=== PATIENT | female | born 1935 | race Caucasian/White ===

== ENCOUNTER 2016-06-13 19:43 | Emergency (ER) | payer MEDICAID, MEDICARE ==
[~2016-06-13 19:43] MED LIST: Sodium Chloride 0.9% 1,000 ML BAG ONE; Sodium Chloride 0.9% 100 ML BAG ONE
[2016-06-13 20:45] LABS: #Basophils 0.1 thou/uL (0.0-0.2); #Eosinphils 0.1 thou/uL (0.0-0.7); #Lymphocytes 0.4 thou/uL (1.20-3.40); #Monocytes 0.5 thou/uL (0.11-0.59); #Neutrophils 10.8 thou/uL (1.40-6.50); %Basophils 1.1 % (0.0-1.0); %Eosinophils 0.4 % (0.0-10.0); %Lymphocytes 3.4 % (21.0-51.0); %Monocytes 4.1 % (0.0-10.0); ALT (SGPT) 9 U/L (0-55); AST (SGOT) 14 U/L (5-34); Albumin 3.5 g/dL (3.4-4.8); Alkaline Phosphatase 50 U/L (40-150); Anion Gap 17 mmol/L (10-20); BUN (Urea Nitrogen) 20 mg/dL (9.8-20.1); Bilirubin, Total 0.8 mg/dL (0.2-1.2); Calc. Creatinine Clearance 0 mL/min (70-130); Calcium 8.7 mg/dL (7.8-10.44); Carbon Dioxide 18 mmol/L (23-31); Chloride 98 mmol/L (98-107); Estimated GFR-MDRD 39; Globulin 2.9 g/dL (2.4-3.5); Glucose 120 mg/dL (83-110); Hemoglobin 10.8 g/dL (12.0-16.0); Lipase 11 U/L (8-78); Mean Corpuscular HGB CONC 34.1 g/dL (32.0-36.0); Mean Corpuscular Hemoglobin 30.7 pg (27.0-31.0); Mean Corpuscular Volume 90.1 fl (81.0-99.0); Mean Platelet Volume 7.1 fL (7.4-10.4); Platelet Count 313 thou/uL (130-400); Potassium 4.6 mmol/L (3.5-5.1); Protein, Total 6.4 g/dL (5.8-8.1); RBC Distribution Width 13.5 % (11.5-14.5); Red Blood Cell (RBC) Count 3.52 mill/uL (4.20-5.40); Sodium 128 mmol/L (136-145); White Blood Cell (WBC) Count 11.8 thou/uL (4.8-10.8)
[2016-06-13 20:52] LABS: CKMB 0.5 ng/mL (0-6.6); Troponin I Less than 0.010 ng/mL (< 0.028)
--- NOTE | 2016-06-13 21:19 | RAD ---
ACUTE ABDOMINAL SERIES 06/13/16 HISTORY: Abdominal pain. CHEST X-RAY: Compared to study on 09/11/15. The cardiac silhouette is magnified by projection but stable in size. Mild chronic lung changes are again seen. The lungs are otherwise clear. Vascular calcifications are seen in the thoracic aorta. N o other interval change. TWO VIEWS OF THE ABDOMEN: There is a nonspecific bowel gas pattern. Vascular calcifications are seen in the abdominal aorta an d iliac arteries. No definite suspicious calcifications are seen. There are degenerative changes in the spine. 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 IMPRESSION: 1. Nonspecific bowel gas pattern. 2. Mild chronic lung changes. POS: [facility]
[2016-06-13 21:39] LABS: Bilirubin Small (Negative); Blood, Urine Large (Negative); Clarity Cloudy (Clear); Glucose, Urine (Dipstick) Negative (Negative); Leukocyte Negative (Negative); Nitrite Negative (Negative); Protein, Urine (Dipstick) 30 mg/dL (Neg-Trace); Urobilinogen 0.2 mg/dL (0.2-1.0); pH, Urine 5.5 (5.0-9.0)
[2016-06-13 21:40] LABS: Bacteria/HPF 4+ HPF (None Seen); Hyaline Casts/LPF 4-6 HYALINE CAST LPF (0-3 Hyaline); Icto Negative (Negative); RBC/HPF 21-50 HPF (0-3); Renal Epithelial 0-3 HPF (0-3); Squamous Epithelial 0-3 HPF (0-3); Transitional Epithelial 0-3 HPF (0-3); WBC/HPF 21-50 HPF (0-3); Yeast-All Forms Rare HPF (None Seen)
[2016-06-13] MEDS ORDERED: cefTRIAXone\\ROCEPHIN 1 GM VIAL ONE (21:47)
[2016-06-13] MEDS ORDERED: Ondansetron ODT 4 MG TAB ONE (21:54)
--- NOTE | 2016-06-13 23:02 | ERRECORD ---
[facility] EMERGENCY RECORD HPI ABDOMINAL PAIN (20:32 BGOE) CHIEF COMPLAINTS: Patient presents for evaluation of abdominal pain. HISTORIAN: History provided by patient, patient notes lower abdominal pain over past 24 hrs. started yesterday evening. intermittent since. noted fever today of 100.6. no v/d. severino po. no sob/cp. no recent travels or exposures. LOCATION FEMALE: Symptoms are localized, most severe in the suprapubic region. QUALITY: Pain is dull in nature, described as aching. SEVERITY: Maximum severity of symptoms moderate, Currently symptoms are mild. TIME COURSE: Gradual onset of symptoms, Symptoms are intermittent. ASSOCIATED WITH FEMALE: No associated recent antibiotic use, No associated bright red blood per rectum, Associated with chills, No associated constipation, No associated diarrhea, Associated with fever, No associated flank pain, No associated groin pain, No associated hematemesis, No associated hematuria, No associated loss of appetite, No associated melena, No associated nausea, No associated night sweats, No associated trauma, No associated recent travel, No associated inability to tolerate oral intake, No associated urinary tract infection signs or symptoms, No associated vomiting, No associated vaginal discharge, No associated vaginal bleeding, No associated weight change. RELIEVED BY: Patient's condition relieved by time. EXACERBATED BY: Patient's condition exacerbated by nothing. ROS (20:34 BGOE) CARDIOVASCULAR: Historian reports chest pain, notes intermittent anginal pains. none currently. MUSCULOSKELETAL: Historian reports arthralgias, generalized, clementine to neck and back. NEUROLOGIC: Negative neurologic review of systems. NOTES: All systems reviewed, negative except as described above. PAST MEDICAL HISTORY MEDICAL HISTORY: Past medical history includes cardiac history, angina, Flu vaccine up to date, Date of immunization: 2014, Pneumococcal vaccine up to date, Date of immunization: 2014, Notes: VERIFIED 09-11-15, Notes: VERIFIED 02-24-14, Flu vaccine up to date, Date of immunization: 2011, Tetanus immunization up to date, Pneumococcal vaccine up to date, Date of immunization: LESS THAN 5 YRS. (19:55 MHEB) FEMALE SURGICAL HISTORY: Surgical history of hysterectomy, VERIFIED 09-11-15, VERIFIED 02-24-14, Surgical history of orthopedic surgery, CONSTANTINE HIP, Date of surgery 2008. VERIFIED 06/13/16. (19:55 MHEB) PSYCHIATRIC HISTORY: No previous psychiatric history, Notes: DENIES. (19:55 MHEB) SOCIAL HISTORY: Patient denies alcohol use, Patient denies drug &a-1R&a+25V*p+0X*p1626C*c202B*c15G*c2P*p-0X&a-25V&a+1R Name: Rosa Tellez : 1935 F80 MedRec: [id number] AcctNum: [id number] Prepared: Sat Jun 13, 2016 23:00 by Interface Page 1 of 4 pMD [facility] EMERGENCY RECORD use, Patient currently uses tobacco, Patient smokes 1 pack per day, Patient denies alcohol use, Patient denies drug use, Patient currently uses tobacco, smokes cigarettes, daily, Patient smokes 1 pack per day, Lives at home, alone, Social History includes VERIFIED 09-11-15, Social History includes VERIFIED 02-24-14, Patient currently uses tobacco, Patient smokes cigarettes, Patient smokes 1 pack per day, Patient denies alcohol use, Patient denies drug use, Lives at home, with family. (19:55 MHEB) NOTES: Nursing records reviewed, Agree with nursing records, Medication list reviewed. (20:35 BGOE) KNOWN ALLERGIES alendronate sodium (Unconfirmed): Reaction: joint pains Alendronic Acid (Unconfirmed) ALLERGIES: (Unconfirmed) citalopram (Unconfirmed): Reaction: dizziness FOOD ALLERGIES: (Unconfirmed) LATEX ALLERGY? (Unconfirmed) SULF (Unconfirmed): Reaction: [id number] Sulfa (Sulfonamide Antibiotics) (Unconfirmed) Sulfa Drugs: Severity: Severe, Source: Patient sulfacetamide (Unconfirmed) tramadol (Unconfirmed): Reaction: headaches vit d3 (Unconfirmed): Reaction: bones hurt CURRENT MEDICATIONS No recorded medications VITAL SIGNS VITAL SIGNS: BP: 89/41, Pulse: 89, Resp: 18, Temp: 99.4 (Oral), Pain: 10, O2 sat: 96 on Room Air, Time: 06/13/2016 19:52. (19:52 MHEB) BP: 92/40, Pulse: 76, Resp: 15, O2 sat: 95 on Room Air, Time: 06/13/2016 20:10. (20:10 EF) BP: 110/49, Pulse: 72, Resp: 18, O2 sat: 98, Time: 06/13/2016 21:28. (21:28 MHEB) PHYSICAL EXAM (20:34 BGOE) CONSTITUTIONAL: Patient afebrile, Pulse normal, Blood pressure, hypotensive, Respiratory rate normal, Patient appears non toxic, Patient appears, in mild pain distress, Patient alert and oriented to person, place and time. HEAD: Head exam included findings of head atraumatic, normocephalic. EYES: Eye exam included findings of eyelids normal to inspection, Pupils equally round and reactive to light, Extraocular muscles intact. ENT: ENT exam normal. NECK: Neck exam included findings of normal range of motion, Trachea midline. &a-1R&a+25V*p+0X*f6414W*c202B*c15G*c2P*p-0X&a-25V&a+1R Name: Rosa Tellez : 1935 F80 MedRec: [id number] AcctNum: [id number] Prepared: Sat Jun 13, 2016 23:00 by Interface Page 2 of 4 pMD [facility] EMERGENCY RECORD RESPIRATORY CHEST: Respiratory and chest exam normal, Breath sounds clear. CARDIOVASCULAR: Cardiovascular exam included findings of heart rate regular rate and rhythm, Heart sounds normal. ABDOMEN FEMALE: Abdominal exam included findings of abdomen tender, to the suprapubic region, mild intensity, Bowel sounds normal. BACK: Back exam normal. UPPER EXTREMITY: Upper extremity exam included findings of inspection normal, Range of motion normal. LOWER EXTREMITY: Lower extremity exam included findings of inspection normal, Range of motion normal. NEURO: Neuro exam findings include patient oriented to person, place and time, Speech normal, Gait normal. SKIN: Skin exam included findings of skin warm, dry, and normal in color. LYMPHATIC: Lymphatic exam included findings of cervical nodes normal. PSYCHIATRIC: Psychiatric exam included findings of patient oriented to person place and time, Normal affect. EKG INTERPRETATION (20:35 BGOE) MONITOR STRIP: cardiac monitor strip interpreted by Emergency Department Physician, Monitor strip shows normal sinus rhythm, with no ectopics. 12 LEAD EKG INTERPRETATION: 12 lead EKG shows normal sinus rhythm, Interpretation: normal EKG, Clinical impression: Normal EKG. RADIOLOGYINTERPRETATION (21:12 BGOE) CHEST: Chest films negative, no acute changes. ABDOMEN: Obstructive series films negative, normal small bowel gas pattern. MEDICATION ADMINISTRATION SUMMARY Drug Name: Zofran ODT, Dose Ordered: 1 tab(s), Route: Oral, Status: Given, Time: 22:12 06/13/2016, Drug Name: Rocephin injection, Dose Ordered: 1 g, Route: IV Piggy Back, Status: Given, Time: 21:52 06/13/2016, Drug Name: Normal Saline, Dose Ordered: 1 L, Route: IV Fluid Infusion, Status: Given, Time: 20:11 06/13/2016, Detailed record available in Medication Service section. DOCTOR NOTES (21:47 BGOE) TEXT: labs/xray reviewed with patient. suspect possible UTI given urine findings. patient still with mild suprapubic pain but overall feeling better after IV fluid. will give Zofran/rocephin and d/c with abx and close f/u with pcp. PATIENT STATUS: Patient has improved since arrival to emergency department. &a-1R&a+25V*p+0X*o4805O*c202B*c15G*c2P*p-0X&a-25V&a+1R Name: Rosa Tellez : 1935 F80 MedRec: [id number] AcctNum: [id number] Prepared: Sat Jun 13, 2016 23:00 by Interface Page 3 of 4 pMD [facility] EMERGENCY RECORD PATIENT PLAN: The patient will be discharged, The patient will follow up with primary care physician. PROBLEM LIST No recorded problems DIAGNOSIS (21:49 BGOE) FINAL: PRIMARY: UTI SITE NOT SPECIFIED, ADDITIONAL: Abdominal Pain, ANEMIA UNSPECIFIED, DEHYDRATION. PRESCRIPTION (21:49 BGOE) Ceftin: TABLET : 500 mg : ORAL : Quantity: 1 Unit: tab(s) Route: ORAL Schedule: 2 times a day Dispense: 14 Unit: tab(s) May substitute. Refills: No Refills . NOTES: No Refills. Zofran ODT: TABLET,DISINTEGRATING : 4 mg : ORAL : Quantity: 4 Unit: mg Route: ORAL Schedule: every 8 hours PRN Dispense: 20 Unit: tab(s) May substitute. Refills: No Refills . NOTES: ^s=No Refills No Refills. DISPOSITION PATIENT: Disposition Type: Discharge, Disposition: *Discharge Home, Condition: Good. (21:49 BGOE) Patient left the department. (22:58 MHEB) Huerta: BGOE=MD Delroy, Jeff CJEF=BEVERLY Brizuela, Liliane MHEB=BEVERLY Chase, Valeria &a-1R&a+25V*p+0X*m4861P*c202B*c15G*c2P*p-0X&a-25V&a+1R Name: GeoffRosa Salomón : 1935 F80 MedRec: [id number] AcctNum: [id number] Prepared: Sree Jun 13, 2016 23:00 by Interface Page 4 of 4 pMD MTDD
--- NOTE | 2016-06-13 23:09 | PICIS ---
[facility] EMERGENCY RECORD TRIAGE (Sat Jun 13, 2016 19:53 MHEB) TRIAGE NOTES: ABDOMINAL PAIN ALL DAY. (Sat Jun 13, 2016 19:53 MHEB) PATIENT: NAME: Rosa Tellez, AGE: 80, GENDER: female, : Sun 1935, TIME OF GREET: Sat Jun 13, 2016 19:44, PREFERRED LANGUAGE: Japanese, ETHNICITY: Not or , ECODE BILLING MAP: [facility], SSN: [id number], Zip Code: [address], KG WEIGHT: 64.86, PHONE: , , , PERSON ID: [id number], PCP: MD Doe Grover. (Sat Jun 13, 2016 19:53 MHEB) COMPLAINT: FEVER AND STOMACH PAIN. (Sat Jun 13, 2016 19:53 MHEB) ADMISSION: URGENCY: 3 Urgent, ADMISSION SOURCE: Home, TRANSPORT: Walk-in, BED: TRIAGE. (Sat Jun 13, 2016 19:53 MHEB) SIRS SCORING: Heart Rate 55-109 (0), Temp range 96.8-101.1 (0), respiratory rate 12-24 (0), Mental Status altered: no (0). (19:55 MHEB) TRIAGE SCREENING: Patient denies suicidal ideation, Patient denies presence of domestic violence. (19:55 MHEB) PROVIDERS: TRIAGE NURSE: Julián Chase RN. (Sat Jun 13, 2016 19:53 MHEB) VITAL SIGNS: BP 89/41, Pulse 89, Resp 18, Temp 99.4, (Oral), Pain 10, O2 Sat 96, on Room Air, Time 06/13/2016 19:52. (19:52 MHEB) KNOWN ALLERGIES alendronate sodium (Unconfirmed): Reaction: joint pains Alendronic Acid (Unconfirmed) ALLERGIES: (Unconfirmed) citalopram (Unconfirmed): Reaction: dizziness FOOD ALLERGIES: (Unconfirmed) LATEX ALLERGY? (Unconfirmed) SULF (Unconfirmed): Reaction: [id number] Sulfa (Sulfonamide Antibiotics) (Unconfirmed) Sulfa Drugs: Severity: Severe, Source: Patient sulfacetamide (Unconfirmed) tramadol (Unconfirmed): Reaction: headaches vit d3 (Unconfirmed): Reaction: bones hurt CURRENT MEDICATIONS No recorded medications VITAL SIGNS VITAL SIGNS: BP: 89/41, Pulse: 89, Resp: 18, Temp: 99.4 (Oral), Pain: 10, O2 sat: 96 on Room Air, Time: 06/13/2016 19:52. (19:52 MHEB) BP: 92/40, Pulse: 76, Resp: 15, O2 sat: 95 on Room Air, Time: 06/13/2016 20:10. (20:10 CJEF) BP: 110/49, Pulse: 72, Resp: 18, O2 sat: 98, Time: 06/13/2016 21:28. (21:28 MHEB) NURSING ASSESSMENT: ABDOMEN (20:09 EB) CONSTITUTIONAL: Patient arrives ambulatory, Gait steady, History &a-1R&a+25V*p+0X*a2337X*c202B*c15G*c2P*p-0X&a-25V&a+1R Name: Rosa Tellez : 1935 F80 MedRec: [id number] AcctNum: [id number] Prepared: Sat Jun 13, 2016 23:06 by Interface Page 1 of 12 pMD [facility] EMERGENCY RECORD obtained from patient, Patient appears comfortable, Patient cooperative, Patient alert, Oriented to person, place and time, Skin warm, Skin dry, Skin normal in color, Mucous membranes pink, Mucous membranes moist, Patient is well-groomed, Patient complains of abdominal pain, states she woke up this am with severe abdominal pain. denies diarrhea, reports nausea but denies vomiting. ABDOMEN: Associated with nausea, no associated vomiting, no associated diarrhea. NURSING ASSESSMENT: FALL RISK (20:09 [facility]) FALL RISK: Fall risk assessment findings include: History of falls (5), No bed rest greater than 2 days (0), No use of level of consciousness altering agents with mentation or cognitive changes (0), Change in blood pressure (1), Sensory deficits (1), Impaired mobility (3), No neurologic diagnosis (0), No elimination problems (0), No confusion (0), Total score 10, Fall risk. HENDRICH II FALL RISK: Hendrich II Fall Risk assessment findings include patient not confused, disoriented or impulsive, not symptomatic or depressed, no altered elimination, no dizziness or vertigo, female, no antiepileptics (anticonvulsants) administered, no Benzodiazepines administered, Multiple attempts, but successful(3), Total score 3, Score less than 5. Patient not high risk for falls. NURSING ASSESSMENT: SKIN (20:10 [facility]) SKIN: Skin assessment findings include skin warm, Skin dry, Skin normal in color. NGOC SCALE: (3) Sensory perception slightly limited, (3) Skin is occasionally moist, (3) Patient walks occasionally, (3) Slightly limited mobility, (3) Adequate nutrition, (3) Patient has no apparent problem moving, Ngoc Risk Total: 18. NOTES: Patient tolerated procedure well. SAFETY: Side rails up, Cart/Stretcher in lowest position, Family at bedside, Call light within reach, Hospital ID band on. NURSING PROCEDURE: ZIGZAGGER (20:09 [facility]) PATIENT IDENTIFIER: Patient actively involved in identification process, Patient's identity verified by patient stating name, Patient's identity verified by patient stating date. ZIGZAGGER: Cardiac monitoring indicated for complaint of chest pain, Patient placed on cardiac cath tech, Heart rate: 78, showing normal sinus rhythm, Patient placed on non-invasive blood pressure monitor, Patient placed on continuous pulse oximetry, Adult/pediatric oxisensor applied. FOLLOW-UP: After procedure, alarms set and on, After procedure, patient tolerating monitoring. NOTES: Patient tolerated procedure well. SAFETY: Side rails up, Cart/Stretcher in lowest position, Family &a-1R&a+25V*p+0X*o5017A*c202B*c15G*c2P*p-0X&a-25V&a+1R Name: Rosa Tellez : 1935 F80 MedRec: [id number] AcctNum: [id number] Prepared: Sat Jun 13, 2016 23:06 by Interface Page 2 of 12 pMD [facility] EMERGENCY RECORD at bedside, Call light within reach, Hospital ID band on. NURSING PROCEDURE: DISCHARGE NOTE (22:35 MHEB) DISCHARGE: Patient discharged to home, in a wheelchair, family driving, accompanied by other family member, Summary of Care printed/ provided, Discharge instructions given to patient, Prescriptions given and instructions on side effects given, Above person(s) verbalized understanding of discharge instructions and follow-up care, Patient treated and evaluated by physician. BELONGINGS: Belongings and valuables with patient at time of discharge include:, Belongings remain with patient, Valuables remain with patient. NURSING PROCEDURE: EKG CHART (20:04 [facility]) PATIENT IDENTIFIER: Patient actively involved in identification process, Patient's identity verified by patient stating name, Patient's identity verified by patient stating date. EKG: EKG indicated for complaint of chest pain, 12 lead EKG performed on the left chest. NURSING PROCEDURE: IV (20:08 [facility]) PATIENT IDENITIFIER: Patient actively involved in identification process, Patient's identity verified by patient stating name, Patient's identity verified by patient stating date. IV SITE 1: IV therapy indicated for hydration, IV therapy indicated for medication administration, IV established, to the left antecubital, using an 18 gauge catheter, in one attempt, IV site prepped with CHLORAPREP, Saline lock established, Flushed with normal saline (mls): 10, Labs drawn at time of placement, labeled in the presence of the patient and sent to lab. FOLLOW-UP SITE 1: After procedure, sterile transparent dressing applied. NOTES: Patient tolerated procedure well. SAFETY: Side rails up, Cart/Stretcher in lowest position, Family at bedside, Call light within reach, Hospital ID band on. NURSING PROCEDURE: TRANSPORT TO TESTS PATIENT IDENTIFIER: Patient actively involved in identification process, Patient's identity verified by patient stating name, Patient's identity verified by patient stating date. (20:16 CJ) TRANSPORT TO TESTS: Transport indicated to facilitate diagnosis, Patient transported to x-ray, via cart, Accompanied by x-ray geophysical data technician. (20:16 CJ) FOLLOW-UP: After procedure, patient returned to emergency department. (20:30 CJ) NOTES: Patient tolerated procedure well. (20:16 CJEF) SAFETY: Side rails up, Cart/Stretcher in lowest position, Family at bedside, Call light within reach, Hospital ID band on. (20:16 CJ) &a-1R&a+25V*p+0X*j1907J*c202B*c15G*c2P*p-0X&a-25V&a+1R Name: Rosa Tellez : 1935 F80 MedRec: [id number] AcctNum: [id number] Prepared: Sat Jun 13, 2016 23:06 by Interface Page 3 of 12 pMD [facility] EMERGENCY RECORD NURSING PROCEDURE: URINE COLLECTION (20:59 MHEB) PATIENT IDENTIFIER: Patient actively involved in identification process, Patient's identity verified by patient stating name, Patient's identity verified by patient stating date. URINE COLLECTION FEMALE: Urine collected by straight cath, using an 8 fr catheter, in one attempt, urine yellow in color, and clear. ORDER DETAILS Order Name: Cardiac Profile w/CKMB & Troponin - I, Status: Active, Time: 20:12 06/13/2016, User: BGOE, - Ordered for: MD Potts Brian, - Entered by: MD Potts Brian - Sat Jun 13, 2016 20:12, - Quantity: 1, Order Name: CBC with Differential, Status: Active, Time: 20:12 06/13/2016, User: BGOE, - Ordered for: MD Potts Brian, - Entered by: MD Potts Brian - Sat Jun 13, 2016 20:12, - Quantity: 1, Order Name: Comprehensive Metabolic Panel, Status: Active, Time: 20:12 06/13/2016, User: BGPATY, - Ordered for: MD Potts Brian, - Entered by: MD Potst Brian - Sat Jun 13, 2016 20:12, - Quantity: 1, Order Name: Lipase, Status: Active, Time: 20:12 06/13/2016, User: BGPATY, - Ordered for: MD Potts Brian, - Entered by: MD Potts Brian - Sat Jun 13, 2016 20:12, - Quantity: 1, Order Name: Urinalysis with Microscopic, Status: Active, Time: 20:12 06/13/2016, User: [email or web address], - Ordered for: MD Potts Brian, - Entered by: MD Potts Brian - Sat Jun 13, 2016 20:12, - Quantity: 1, Order Name: XR Abdomen 2 View/1 View Cxr, Status: Active, Time: 20:11 06/13/2016, User: BGOE, - Ordered for: MD Potts Brian, - Entered by: MD Potts Brian - Sat Jun 13, 2016 20:11, - Quantity: 1. MEDICATION ADMINISTRATION SUMMARY Drug Name: Zofran ODT, Dose Ordered: 1 tab(s), Route: Oral, Status: Given, Time: 22:12 06/13/2016, Drug Name: Rocephin injection, Dose Ordered: 1 g, Route: IV Piggy Back, Status: Given, Time: 21:52 06/13/2016, Drug Name: Normal Saline, Dose Ordered: 1 L, Route: IV Fluid Infusion, Status: Given, Time: 20:11 06/13/2016, Detailed record available in Medication Service section. &a-1R&a+25V*p+0X*z3291O*c202B*c15G*c2P*p-0X&a-25V&a+1R Name: Rosa Tellez : 1935 F80 MedRec: [id number] AcctNum: [id number] Prepared: Sat Jun 13, 2016 23:06 by Interface Page 4 of 12 pMD [facility] EMERGENCY RECORD MEDICATION SERVICE Normal Saline: Order: Normal Saline (0.9 % sodium chloride) - Dose: 1 L : IV Fluid Infusion Schedule: Now Ordered by: Jeff Potts MD Entered by: Jeff Potts MD Sat Jun 13, 2016 20:10 Documented as given by: Liliane Brizuela RN Sat Jun 13, 2016 20:11 Patient, Medication, Dose, Route and Time verified prior to administration. Amount given: 1 L, IV SITE #1 IV fluids established for hydration, IV SITE #1 into left antecubital, IV SITE #1 1st bag hung, IV SITE #1 bolus of 1000 ml established, via primary tubing, Awake and alert- acceptable, Connections checked prior to administration, Line traced prior to administration, Catheter placement confirmed via flush prior to administration, IV site without signs or symptoms of infiltration during medication administration, No swelling during administration, No drainage during administration, IV flushed after administration, Correct patient, time, route, dose and medication confirmed prior to administration, Patient advised of actions and side-effects prior to administration, Allergies confirmed and medications reviewed prior to administration, Patient tolerated procedure well, Administered by JULIÁN PAUL, Patient in position of comfort, Side rails up, Cart in lowest position, Family at bedside. : Follow Up : Response assessment performed, No signs or symptoms of allergic reaction noted, Decreased pain, Decreased symptoms, _IV SITE #1:_, IV fluid infusion discontinued, on Sat Jun 13, 2016 21:10, . (21:10 MHEB) Rocephin injection: Order: Rocephin injection (ceftriaxone sodium) - Dose: 1 g : IV Piggy Back Schedule: Now Ordered by: Jeff Potts MD Entered by: Jeff Potts MD Sat Jun 13, 2016 21:46 , Acknowledged by: Julián Chase RN Sat Jun 13, 2016 21:52 Documented as given by: Julián Chase RN Sat Jun 13, 2016 21:52 Patient, Medication, Dose, Route and Time verified prior to administration. Amount given: 1gm, IV SITE #1 IVPB or drip, initial infusion, IVPB mixed in: 100ml, Fluid: 0.9NS, via primary tubing, Catheter placement confirmed via flush prior to administration, IV site without signs or symptoms of infiltration during medication administration, No swelling during administration, No drainage during administration, IV flushed after administration, Correct patient, time, route, dose and medication confirmed prior to administration, Patient advised of actions and side-effects prior to administration, Allergies confirmed and medications reviewed prior to administration, Patient in position of comfort, Side rails up, Cart in lowest position, Family at bedside. : Follow Up : _IV SITE #1:_, Medication infusion discontinued, on Sat Jun 13, 2016 22:18, 30 minutes, ., IV Discontinued with catheter intact. (22:18 MHEB) &a-1R&a+25V*p+0X*m8146G*c202B*c15G*c2P*p-0X&a-25V&a+1R Name: Rosa Tellez [place]omón : 1935 F80 MedRec: [id number] AcctNum: [id number] Prepared: Sat Jun 13, 2016 23:06 by Interface Page 5 of 12 pMD [facility] EMERGENCY RECORD Zofran ODT: Order: Zofran ODT (ondansetron) - Dose: 1 tab(s) : Oral Schedule: Now Ordered by: Jeff Potts MD Entered by: Jeff Potts MD Sat Jun 13, 2016 21:46 , Acknowledged by: Julián Chase RN Sat Jun 13, 2016 21:52 Documented as given by: Julián Chase RN Sat Jun 13, 2016 22:12 Patient, Medication, Dose, Route and Time verified prior to administration. Amount given: 1 tab, Site: Medication administered P.O., Correct patient, time, route, dose and medication confirmed prior to administration, Patient advised of actions and side-effects prior to administration, Allergies confirmed and medications reviewed prior to administration, Patient in position of comfort, Side rails up, Cart in lowest position, Family at bedside. HPI ABDOMINAL PAIN (20:32 BGOE) CHIEF COMPLAINTS: Patient presents for evaluation of abdominal pain. HISTORIAN: History provided by patient, patient notes lower abdominal pain over past 24 hrs. started yesterday evening. intermittent since. noted fever today of 100.6. no v/d. severino po. no sob/cp. no recent travels or exposures. LOCATION FEMALE: Symptoms are localized, most severe in the suprapubic region. QUALITY: Pain is dull in nature, described as aching. SEVERITY: Maximum severity of symptoms moderate, Currently symptoms are mild. TIME COURSE: Gradual onset of symptoms, Symptoms are intermittent. ASSOCIATED WITH FEMALE: No associated recent antibiotic use, No associated bright red blood per rectum, Associated with chills, No associated constipation, No associated diarrhea, Associated with fever, No associated flank pain, No associated groin pain, No associated hematemesis, No associated hematuria, No associated loss of appetite, No associated melena, No associated nausea, No associated night sweats, No associated trauma, No associated recent travel, No associated inability to tolerate oral intake, No associated urinary tract infection signs or symptoms, No associated vomiting, No associated vaginal discharge, No associated vaginal bleeding, No associated weight change. RELIEVED BY: Patient's condition relieved by time. EXACERBATED BY: Patient's condition exacerbated by nothing. ROS (20:34 BGOE) CARDIOVASCULAR: Historian reports chest pain, notes intermittent anginal pains. none currently. MUSCULOSKELETAL: Historian reports arthralgias, generalized, clementine to neck and back. NEUROLOGIC: Negative neurologic review of systems. NOTES: All systems reviewed, negative except as described above. &a-1R&a+25V*p+0X*t7370Z*c202B*c15G*c2P*p-0X&a-25V&a+1R Name: Rosa Tellez : 1935 F80 MedRec: [id number] AcctNum: [id number] Prepared: Sree Jun 13, 2016 23:06 by Interface Page 6 of 12 pMD [facility] EMERGENCY RECORD PAST MEDICAL HISTORY MEDICAL HISTORY: Past medical history includes cardiac history, angina, Flu vaccine up to date, Date of immunization: 2014, Pneumococcal vaccine up to date, Date of immunization: 2014, Notes: VERIFIED --16, Notes: VERIFIED 02-24-, Flu vaccine up to date, Date of immunization: 2011, Tetanus immunization up to date, Pneumococcal vaccine up to date, Date of immunization: LESS THAN 5 YRS. (19:55 MHEB) FEMALE SURGICAL HISTORY: Surgical history of hysterectomy, VERIFIED --16, VERIFIED 02-24-14, Surgical history of orthopedic surgery, CONSTANTINE HIP, Date of surgery 2008. VERIFIED 06/13/16. (19:55 MHEB) PSYCHIATRIC HISTORY: No previous psychiatric history, Notes: DENIES. (19:55 MHEB) SOCIAL HISTORY: Patient denies alcohol use, Patient denies drug use, Patient currently uses tobacco, Patient smokes 1 pack per day, Patient denies alcohol use, Patient denies drug use, Patient currently uses tobacco, smokes cigarettes, daily, Patient smokes 1 pack per day, Lives at home, alone, Social History includes VERIFIED --16, Social History includes VERIFIED 02-24-14, Patient currently uses tobacco, Patient smokes cigarettes, Patient smokes 1 pack per day, Patient denies alcohol use, Patient denies drug use, Lives at home, with family. (19:55 MHEB) NOTES: Nursing records reviewed, Agree with nursing records, Medication list reviewed. (20:35 BGOE) PHYSICAL EXAM (20:34 BGOE) CONSTITUTIONAL: Patient afebrile, Pulse normal, Blood pressure, hypotensive, Respiratory rate normal, Patient appears non toxic, Patient appears, in mild pain distress, Patient alert and oriented to person, place and time. HEAD: Head exam included findings of head atraumatic, normocephalic. EYES: Eye exam included findings of eyelids normal to inspection, Pupils equally round and reactive to light, Extraocular muscles intact. ENT: ENT exam normal. NECK: Neck exam included findings of normal range of motion, Trachea midline. RESPIRATORY CHEST: Respiratory and chest exam normal, Breath sounds clear. CARDIOVASCULAR: Cardiovascular exam included findings of heart rate regular rate and rhythm, Heart sounds normal. ABDOMEN FEMALE: Abdominal exam included findings of abdomen tender, to the suprapubic region, mild intensity, Bowel sounds normal. BACK: Back exam normal. UPPER EXTREMITY: Upper extremity exam included findings of &a-1R&a+25V*p+0X*k4763M*c202B*c15G*c2P*p-0X&a-25V&a+1R Name: Rosa Tellez : 1935 F80 MedRec: [id number] AcctNum: [id number] Prepared: [facility] Jun 13, 2016 23:06 by Interface Page 7 of 12 pMD [facility] EMERGENCY RECORD inspection normal, Range of motion normal. LOWER EXTREMITY: Lower extremity exam included findings of inspection normal, Range of motion normal. NEURO: Neuro exam findings include patient oriented to person, place and time, Speech normal, Gait normal. SKIN: Skin exam included findings of skin warm, dry, and normal in color. LYMPHATIC: Lymphatic exam included findings of cervical nodes normal. PSYCHIATRIC: Psychiatric exam included findings of patient oriented to person place and time, Normal affect. EVENTS TRANSFER: Triage to Emergency Triage. (Sat Jun 13, 2016 19:53 MHEB) Emergency Triage to Main ED -01. (20:06 MHEB) Removed from Emergency Main ED -01. (22:58 MHEB) RADIOLOGYINTERPRETATION (21:12 BGOE) CHEST: Chest films negative, no acute changes. ABDOMEN: Obstructive series films negative, normal small bowel gas pattern. EKG INTERPRETATION (20:35 BGOE) MONITOR STRIP: sports internship strip interpreted by Emergency Department Physician, Monitor strip shows normal sinus rhythm, with no ectopics. 12 LEAD EKG INTERPRETATION: 12 lead EKG shows normal sinus rhythm, Interpretation: normal EKG, Clinical impression: Normal EKG. O2SAT INTERPRETATION (20:35 BGOE) O2SAT: Single pulse oximetry, Oxygen saturation interpretation: Normal. DOCTOR NOTES (21:47 BGOE) TEXT: labs/xray reviewed with patient. suspect possible UTI given urine findings. patient still with mild suprapubic pain but overall feeling better after IV fluid. will give Zofran/rocephin and d/c with abx and close f/u with pcp. PATIENT STATUS: Patient has improved since arrival to emergency department. PATIENT PLAN: The patient will be discharged, The patient will follow up with primary care physician. PROBLEM LIST No recorded problems DIAGNOSIS (21:49 BGOE) FINAL: PRIMARY: UTI SITE NOT SPECIFIED, ADDITIONAL: Abdominal Pain, ANEMIA UNSPECIFIED, DEHYDRATION. &a-1R&a+25V*p+0X*i0326I*c202B*c15G*c2P*p-0X&a-25V&a+1R Name: Rosa Tellez : 1935 F80 MedRec: [id number] AcctNum: [id number] Prepared: Sree Jun 13, 2016 23:06 by Interface Page 8 of 12 pMD [facility] EMERGENCY RECORD DISPOSITION PATIENT: Disposition Type: Discharge, Disposition: *Discharge Home, Condition: Good. (21:49 BGOE) Patient left the department. (22:58 MHEB) INSTRUCTION (21:50 BGOE) DISCHARGE: UTI (CYSTITIS), FEMALE (CHILD), ANEMIA, TYPE NOT SPECIFIED (ADULT). FOLLOWUP: MD Brook, Eduard, [facility], [address] [place] [address], , Follow up with Primary Care Physician in 1-2 days. SPECIAL: rest/hydration. repeat UA, CBC, BMP with PCP. Tylenol for Pain Follow-up with your PCP. PRESCRIPTION (21:49 BGOE) Ceftin: TABLET : 500 mg : ORAL : Quantity: 1 Unit: tab(s) Route: ORAL Schedule: 2 times a day Dispense: 14 Unit: tab(s) May substitute. Refills: No Refills . NOTES: No Refills. Zofran ODT: TABLET,DISINTEGRATING : 4 mg : ORAL : Quantity: 4 Unit: mg Route: ORAL Schedule: every 8 hours PRN Dispense: 20 Unit: tab(s) May substitute. Refills: No Refills . NOTES: ^s=No Refills No Refills. IMAGING *SUPPLY CHARGE SHEET: Image captured from scanner. (22:37 MHEB) VITAL SIGNS: Image captured from scanner. (22:37 MHEB) *DISCHARGE INSTRUCTIONS RECEIPT: Image captured from scanner. (22:38 MHEB) Page 2 added. Image captured from scanner. (22:38 MHEB) *EKG: Image captured from scanner. (22:38 MHEB) RESULTS LABORATORY: Lipase Collection DT: Sat Jun 13, 2016 20:23, Lipase 11 U/L, Range (8-78). (20:47 [facility]) Comprehensive Metabolic Panel Collection DT: Sat Jun 13, 2016 20:23, *Sodium 128 - L mmol/L, Range (136-145), Potassium 4.6 mmol/L, Range (3.5-5.1), Chloride 98 mmol/L, Range (98-107), *Carbon Dioxide 18 - L mmol/L, Range (23-31), Anion Gap 17 mmol/L, Range (10-20), BUN (Urea Nitrogen) 20 mg/dL, Range (9.8-20.1), *Creatinine 1.33 - H mg/dL, Range (0.6-1.1), &a-1R&a+25V*p+0X*a9364A*c202B*c15G*c2P*p-0X&a-25V&a+1R Name: Rosa Tellez : 1935 F80 MedRec: [id number] AcctNum: [id number] Prepared: Sat Jun 13, 2016 23:06 by Interface Page 9 of 12 pMD [facility] EMERGENCY RECORD Estimated GFR-MDRD 39 , Reference Range for Estimated GFR: Greater than 90, mL/min/1.73 m2 NOTE: The MDRD equation has not been validated for use, with the elderly (over 70 years of age), women, patients with, serious comorbid condition or persons with extremes of body size, muscle, mass, or nutritional status. , *Glucose 120 - H mg/dL, Range (83-110), Calcium 8.7 mg/dL, Range (7.8-10.44), Bilirubin, Total 0.8 mg/dL, Range (0.2-1.2), Protein, Total 6.4 g/dL, Range (5.8-8.1), NOTE: Plasma values are generally 0.3 to 0.5 g/dL higher than serum values, due to the presence of fibrinogen. , Albumin 3.5 g/dL, Range (3.4-4.8), Globulin 2.9 g/dL, Range (2.4-3.5), Alb/Glob Ratio 1.2 g/dL, Range (1.2-2.2), Alkaline Phosphatase 50 U/L, Range (40-150), AST (SGOT) 14 U/L, Range (5-34), ALT (SGPT) 9 U/L, Range (0-55). (20:47 [facility]) CBC with Differential Collection DT: Sat Jun 13, 2016 20:23, *White Blood Cell (WBC) Count 11.8 - H thou/uL, Range (4.8-10.8), *Red Blood Cell (RBC) Count 3.52 - L mill/uL, Range (4.20-5.40), *Hemoglobin 10.8 - L g/dL, Range (12.0-16.0), *Hematocrit 31.7 - L %, Range (36.0-47.0), Mean Corpuscular Volume 90.1 fl, Range (81.0-99.0), Mean Corpuscular Hemoglobin 30.7 pg, Range (27.0-31.0), Mean Corpuscular HGB CONC 34.1 g/dL, Range (32.0-36.0), RBC Distribution Width 13.5 %, Range (11.5-14.5), Platelet Count 313 thou/uL, Range (130-400), *Mean Platelet Volume 7.1 - L fL, Range (7.4-10.4), *%Neutrophils 91.0 - H %, Range (42.0-75.0), *%Lymphocytes 3.4 - L %, Range (21.0-51.0), %Monocytes 4.1 %, Range (0.0-10.0), %Eosinophils 0.4 %, Range (0.0-10.0), *%Basophils 1.1 - H %, Range (0.0-1.0), *#Neutrophils 10.8 - H thou/uL, Range (1.40-6.50), *#Lymphocytes 0.4 - L thou/uL, Range (1.20-3.40), #Monocytes 0.5 thou/uL, Range (0.11-0.59), #Eosinphils 0.1 thou/uL, Range (0.0-0.7), #Basophils 0.1 thou/uL, Range (0.0-0.2). (20:47 CJEF) Cardiac Profile w/CKMB & TropI Collection DT: [facility] Jun 13, 2016 20:23, CKMB 0.5 ng/mL, Range (0-6.6), Troponin I Less than 0.010 ng/mL, Range (< 0.028), Reference Range , 0.00 - 0.028 ng/mL Negative 0.029 - 0.29 ng/mL , Indeterminate &a-1R&a+25V*p+0X*n3483T*c202B*c15G*c2P*p-0X&a-25V&a+1R Name: Rosa Tellez : 1935 F80 MedRec: [id number] AcctNum: [id number] Prepared: [facility] Jun 13, 2016 23:06 by Interface Page 10 of 12 D [facility] EMERGENCY RECORD Greater or Equal to 0.3 ng/mL Strongly suggests [facility] , . (20:57 CJEF) Urinalysis with Microscopic Collection DT: [facility] Jun 13, 2016 21:39, Color Yellow , Range (Yellow), Clarity Cloudy , Range (Clear), Specific Desmet, Urine 1.020 , Range (1.005-1.030), pH, Urine 5.5 , Range (5.0-9.0), Leukocyte Negative , Range (Negative), Nitrite Negative , Range (Negative), *Protein, Urine (Dipstick) 30 - H mg/dL, Range (Neg-Trace), Glucose, Urine (Dipstick) Negative mg/dL, Range (Negative), Ketone, Urine Negative mg/dL, Range (Negative), Urobilinogen 0.2 mg/dL, Range (0.2-1.0), *Bilirubin Small - H , Range (Negative), CAUTION Urine, Bilirubin has a high incidence of false positive results due to urine color, interference. Interpret results in conjunction with other clinical, findings. , *Blood, Urine Large - H , Range (Negative), *RBC/HPF 21-50 - H HPF, Range (0-3), *WBC/HPF 21-50 - H HPF, Range (0-3), Squamous Epithelial 0-3 HPF, Range (0-3), Transitional Epithelial 0-3 HPF, Range (0-3), Renal Epithelial 0-3 HPF, Range (0-3), *Bacteria/HPF 4+ - H HPF, Range (None Seen), Yeast-All Forms Rare HPF, Range (None Seen), *Hyaline Casts/LPF 4-6 HYALINE CAST - LPF, * H , Range (0-3 Hyaline). (21:44 BGOE) Urinalysis with Microscopic Collection DT: Sat Jun 13, 2016 21:39, Color Yellow , Range (Yellow), Clarity Cloudy , Range (Clear), Specific Desmet, Urine 1.020 , Range (1.005-1.030), pH, Urine 5.5 , Range (5.0-9.0), Leukocyte Negative , Range (Negative), Nitrite Negative , Range (Negative), *Protein, Urine (Dipstick) 30 - H mg/dL, Range (Neg-Trace), Glucose, Urine (Dipstick) Negative mg/dL, Range (Negative), Ketone, Urine Negative mg/dL, Range (Negative), Urobilinogen 0.2 mg/dL, Range (0.2-1.0), *Bilirubin Small - H , Range (Negative), CAUTION Urine, Bilirubin has a high incidence of false positive results due to urine color, interference. Interpret results in conjunction with other clinical, findings. , &a-1R&a+25V*p+0X*m1819T*c202B*c15G*c2P*p-0X&a-25V&a+1R Name: Rosa Tellez : 1935 F80 MedRec: [id number] AcctNum: [id number] Prepared: Sat Jun 13, 2016 23:06 by Interface Page 11 of 12 pMD [facility] RECORD *Blood, Urine Large - H , Range (Negative), *RBC/HPF 21-50 - H HPF, Range (0-3), *WBC/HPF 21-50 - H HPF, Range (0-3), Squamous Epithelial 0-3 HPF, Range (0-3), Transitional Epithelial 0-3 HPF, Range (0-3), Renal Epithelial 0-3 HPF, Range (0-3), *Bacteria/HPF 4+ - H HPF, Range (None Seen), Yeast-All Forms Rare HPF, Range (None Seen), *Hyaline Casts/LPF 4-6 HYALINE CAST - LPF, * H , Range (0-3 Hyaline). (21:45 [facility]) Huerta: OE=MD Delroy, Jeff CJEF=BEVERLY Brizuela, Liliane MHEB=BEVERLY Chase, Julián &a-1R&a+25V*p+0X*[id number]*c202B*c15G*c2P*p-0X&a-25V&a+1R Name: Rosa Tellez : 1935 F80 MedRec: [id number] AcctNum: [id number] Prepared: Sat Jun 13, 2016 23:06 by Interface Page 12 of 12 pMD MTDD
== END 2016-06-13 22:35 | disposition home or self-care (01) ==
LOC: MADERS 19:43
DX: N39.0 Urinary tract infection, site not specified (principal); D64.9 Anemia, unspecified; E86.0 Dehydration; I20.9 Angina pectoris, unspecified; F17.210 Nicotine dependence, cigarettes, uncomplicated; Z90.710 Acquired absence of both cervix and uterus
CPT/HCPCS: 36415; 51701; 74022; 80053; 81001; 82553; 83690; 84484; 85025; 96361; 96365; A4353; J0696; J7050; Q0162

== ENCOUNTER 2016-07-21 16:25 | Emergency (ER) | payer MEDICAID, MEDICARE ==
[~2016-07-21 16:25] MED LIST changes: +Iopamidol 370 76% 125 ML VIAL FS ONE; +Nitroglycerin 0.4 MG TAB 1 EACH ONE; -Sodium Chloride 0.9% 1,000 ML BAG ONE; -Sodium Chloride 0.9% 100 ML BAG ONE
[2016-07-21 17:04] LABS: #Basophils 0.1 thou/uL (0.0-0.2); #Eosinphils 0.3 thou/uL (0.0-0.7); #Monocytes 0.6 thou/uL (0.11-0.59); #Neutrophils 7.1 thou/uL (1.40-6.50); %Basophils 1.3 % (0.0-1.0); %Eosinophils 3.4 % (0.0-10.0); %Lymphocytes 10.5 % (21.0-51.0); %Neutrophils 77.8 % (42.0-75.0); Hemoglobin 9.9 g/dL (12.0-16.0); Mean Corpuscular HGB CONC 32.9 g/dL (32.0-36.0); Mean Corpuscular Hemoglobin 28.9 pg (27.0-31.0); Mean Platelet Volume 6.2 fL (7.4-10.4); Platelet Count 494 thou/uL (130-400); RBC Distribution Width 15.5 % (11.5-14.5); Red Blood Cell (RBC) Count 3.42 mill/uL (4.20-5.40); White Blood Cell (WBC) Count 9.1 thou/uL (4.8-10.8)
[2016-07-21] MEDS ORDERED: Nitroglycerin 0.4 MG TAB 1 EACH ONE (17:18)
[2016-07-21 17:21] LABS: ALT (SGPT) 11 U/L (0-55); AST (SGOT) 14 U/L (5-34); Albumin 3.5 g/dL (3.4-4.8); Alkaline Phosphatase 66 U/L (40-150); Anion Gap 19 mmol/L (10-20); BUN (Urea Nitrogen) 19 mg/dL (9.8-20.1); Bilirubin, Total 0.3 mg/dL (0.2-1.2); CKMB 1.5 ng/mL (0-6.6); Calc. Creatinine Clearance 0 mL/min (70-130); Calcium 8.6 mg/dL (7.8-10.44); Carbon Dioxide 20 mmol/L (23-31); Chloride 100 mmol/L (98-107); Estimated GFR-MDRD 47; Globulin 3.5 g/dL (2.4-3.5); Glucose 102 mg/dL (83-110); Potassium 3.6 mmol/L (3.5-5.1); Sodium 135 mmol/L (136-145); Troponin I Less than 0.010 ng/mL (< 0.028)
--- NOTE | 2016-07-21 17:59 | RAD ---
TWO VIEW CHEST: 07/21/16 HISTORY: Trauma with injury to chest. Comparison made to portable film of 06/15/16. There are changes of COPD. The heart is mildly enlarged. The vascular and interstitial markings are prominent. There is no evidence of infiltrate or effusion. No evidence of pneumothorax. There has been prior resection of the distal left clavicle which is a stable finding. Degenerative c hanges at both shoulders again noted. No acute fracture identified. IMPRESSION: There are chronic lung changes which appears stable. POS: [facility]
--- NOTE | 2016-07-21 18:07 | RAD ---
LEFT RIBS: 07/21/16 HISTORY: Injury to left chest. There has been prior resection of the distal left clavicle. Mild degenerative changes at the left sh oulder. There is mild deformity of lateral left ribs seen on oblique view which suggests old fractur es. No definite acute fracture identified. IMPRESSION: 1. Evidence of old left lateral rib fractures. 2. Prior resection of distal left clavicle. 3. Degenerative changes of the left shoulder. 4. No acute left rib fracture identified. POS: [facility]
[2016-07-21] MEDS ORDERED: Nitroglycerin 2% Ointment 1 INCH/1 GM Packet ONE (19:05)
[2016-07-21] MEDS ORDERED: Labetalol HCl 100 MG/20 ML VIAL ONE (19:06)
--- NOTE | 2016-07-21 19:49 | CT ---
CT PULMONARY ANGIO OF CHEST WITH IV ENHANCEMENT: 07/21/16 Multiple axial tomograms obtained through chest with IV enhancement in a pulmonary angio phase with multiplanar reconstruction and 3D postprocessing. HISTORY: Chest pain. FINDINGS: Pulmonary arteries are well opacified. There is no evidence of pulmonary embolus identified. The lungs show ground glass haziness bilaterally, more prominent posteriorly. This could represent e viral or inflammatory process. There is no confluent consolidation. No significant effusion. There is cardiomegaly and mild vascular engorgement. Nonspecific mediastinal and hilar lymph nodes. IMPRESSION: 1. No evidence of pulmonary embolus. 2. Hazy ground glass lung opacity more prominent posteriorly in both lungs. This could represen t dependent edema. There is cardiomegaly and mild vascular engorgement. 3. Nonspecific mediastinal and hilar lymph nodes. POS: [facility]
== END 2016-07-21 20:07 | disposition short-term general hospital (02) ==
LOC: MADERS 16:25
DX: S20.212A Contusion of left front wall of thorax, initial encounter (principal); I11.0 Hypertensive heart disease with heart failure; I50.9 Heart failure, unspecified; F41.9 Anxiety disorder, unspecified; F17.210 Nicotine dependence, cigarettes, uncomplicated; X58.XXXA Exposure to other specified factors, initial encounter
CPT/HCPCS: 36415; 71020; 71275; 80053; 82553; 83880; 84484; 85025; 85379; 93005; 96374; 96375; 96376; J0360; J2270

== ENCOUNTER 2016-08-21 09:02 | Outpatient (CLI) | payer MEDICARE ==
[2016-08-21 09:20] LABS: #Basophils 0.2 thou/uL (0.0-0.2); #Eosinphils 0.3 thou/uL (0.0-0.7); #Lymphocytes 1.2 thou/uL (1.20-3.40); #Monocytes 0.9 thou/uL (0.11-0.59); #Neutrophils 6.1 thou/uL (1.40-6.50); %Basophils 2.6 % (0.0-1.0); %Eosinophils 3.6 % (0.0-10.0); %Lymphocytes 13.3 % (21.0-51.0); %Monocytes 10.4 % (0.0-10.0); %Neutrophils 70.2 % (42.0-75.0); Hemoglobin 10.2 g/dL (12.0-16.0); Mean Corpuscular HGB CONC 32.8 g/dL (32.0-36.0); Mean Corpuscular Hemoglobin 28.8 pg (27.0-31.0); Mean Corpuscular Volume 87.6 fl (81.0-99.0); Platelet Count 494 thou/uL (130-400); RBC Distribution Width 14.5 % (11.5-14.5); Red Blood Cell (RBC) Count 3.53 mill/uL (4.20-5.40); White Blood Cell (WBC) Count 8.7 thou/uL (4.8-10.8)
[2016-08-21 09:31] LABS: Anion Gap 17 mmol/L (10-20); BUN (Urea Nitrogen) 28 mg/dL (9.8-20.1); Calc. Creatinine Clearance 0 mL/min (70-130); Calcium 9.9 mg/dL (7.8-10.44); Carbon Dioxide 23 mmol/L (23-31); Chloride 101 mmol/L (98-107); Estimated GFR-MDRD 43; Glucose 121 mg/dL (83-110); Potassium 4.5 mmol/L (3.5-5.1); Sodium 136 mmol/L (136-145)
== END 2016-08-21 09:03 | disposition home or self-care (01) ==
LOC: MADLABBHPM 09:02
PROVIDERS: ATTEND Family Medicine
DX: I10 Essential (primary) hypertension (principal)
CPT/HCPCS: 36415; 80048; 85025

== ENCOUNTER 2016-09-18 07:06 | Outpatient (CLI) | payer MEDICARE ==
[2016-09-18 07:27] LABS: #Basophils 0.1 thou/uL (0.0-0.2); #Eosinphils 0.2 thou/uL (0.0-0.7); #Lymphocytes 1.8 thou/uL (1.20-3.40); #Monocytes 0.6 thou/uL (0.11-0.59); #Neutrophils 4.8 thou/uL (1.40-6.50); %Eosinophils 2.8 % (0.0-10.0); %Lymphocytes 24.3 % (21.0-51.0); %Monocytes 7.3 % (0.0-10.0); %Neutrophils 64.6 % (42.0-75.0); Mean Corpuscular HGB CONC 31.9 g/dL (32.0-36.0); Mean Corpuscular Hemoglobin 27.9 pg (27.0-31.0); Mean Corpuscular Volume 87.6 fl (81.0-99.0); Mean Platelet Volume 6.4 fL (7.4-10.4); Platelet Count 405 thou/uL (130-400); RBC Distribution Width 14.3 % (11.5-14.5); Red Blood Cell (RBC) Count 3.21 mill/uL (4.20-5.40); White Blood Cell (WBC) Count 7.5 thou/uL (4.8-10.8)
[2016-09-18 07:38] LABS: Hemoglobin A1c 5.3 % (4.0-6.0)
[2016-09-18 07:43] LABS: Anion Gap 15 mmol/L (10-20); BUN (Urea Nitrogen) 29 mg/dL (9.8-20.1); Calc. Creatinine Clearance 0 mL/min (70-130); Carbon Dioxide 20 mmol/L (23-31); Chloride 102 mmol/L (98-107); Estimated GFR-MDRD 41; Glucose 89 mg/dL (83-110); Potassium 4.8 mmol/L (3.5-5.1); Sodium 132 mmol/L (136-145)
== END 2016-09-18 07:07 | disposition home or self-care (01) ==
LOC: MADLABBHPM 07:06
PROVIDERS: ATTEND Family Medicine
DX: N18.3 Chronic kidney disease, stage 3 (moderate) (principal); D64.9 Anemia, unspecified
CPT/HCPCS: 36415; 80048; 83036; 85025

== ENCOUNTER 2016-09-29 19:18 | Emergency (ER) | payer MEDICARE ==
[~2016-09-29 19:18] MED LIST changes: -Iopamidol 370 76% 125 ML VIAL FS ONE; -Nitroglycerin 0.4 MG TAB 1 EACH ONE; +Sodium Chloride 0.9% 1,000 ML BAG ONE
[2016-09-29] MEDS ORDERED: Aspirin 325 MG TAB ONE (19:39)
[2016-09-29 19:42] LABS: #Basophils 0.1 thou/uL (0.0-0.2); #Eosinphils 0.1 thou/uL (0.0-0.7); #Lymphocytes 1.6 thou/uL (1.20-3.40); #Monocytes 0.4 thou/uL (0.11-0.59); #Neutrophils 6.5 thou/uL (1.40-6.50); %Basophils 0.6 % (0.0-1.0); %Eosinophils 1.7 % (0.0-10.0); %Lymphocytes 18.4 % (21.0-51.0); %Monocytes 4.2 % (0.0-10.0); %Neutrophils 75.1 % (42.0-75.0); Hemoglobin 9.2 g/dL (12.0-16.0); Mean Corpuscular HGB CONC 32.3 g/dL (32.0-36.0); Mean Corpuscular Hemoglobin 27.8 pg (27.0-31.0); Mean Corpuscular Volume 86.1 fl (81.0-99.0); Mean Platelet Volume 6.2 fL (7.4-10.4); Platelet Count 444 thou/uL (130-400); Red Blood Cell (RBC) Count 3.31 mill/uL (4.20-5.40); White Blood Cell (WBC) Count 8.6 thou/uL (4.8-10.8)
[2016-09-29 19:55] LABS: INR-International Normal Ratio 0.9; PTT 27.5 SEC (22.9-36.1); Prothrombin Time 12.6 SEC (12.0-14.7)
[2016-09-29 19:56] LABS: D-Dimer Test 1.72 *mcg/mL (0.27-0.43)
--- NOTE | 2016-09-29 19:58 | RAD ---
PORTABLE CHEST: 09/29/16 HISTORY: Chest pain. COMPARISON: 06/15/16 study. Heart size is enlarged. There are atherosclerotic changes of the aorta. The lungs show chronic leon e without focal infiltrates. IMPRESSION: Mild cardiomegaly. POS: [facility]
[2016-09-29 19:59] LABS: ALT (SGPT) 8 U/L (0-55); AST (SGOT) 15 U/L (5-34); Alkaline Phosphatase 81 U/L (40-150); Anion Gap 14 mmol/L (10-20); BUN (Urea Nitrogen) 27 mg/dL (9.8-20.1); Bilirubin, Total Less than 0.3 mg/dL (0.2-1.2); Calc. Creatinine Clearance 0 mL/min (70-130); Calcium 9.3 mg/dL (7.8-10.44); Carbon Dioxide 18 mmol/L (23-31); Chloride 102 mmol/L (98-107); Estimated GFR-MDRD 37; Globulin 3.5 g/dL (2.4-3.5); Glucose 154 mg/dL (83-110); Potassium 4.4 mmol/L (3.5-5.1); Protein, Total 7.5 g/dL (5.8-8.1); Sodium 130 mmol/L (136-145)
[2016-09-29 20:03] LABS: CKMB 2.5 ng/mL (0-6.6); Troponin I 0.017 ng/mL (< 0.028)
== END 2016-09-29 21:20 | disposition left against medical advice (07) ==
LOC: MADERS 19:18
DX: R07.9 Chest pain, unspecified (principal); F17.210 Nicotine dependence, cigarettes, uncomplicated; Z79.899 Other long term (current) drug therapy
CPT/HCPCS: 36415; 71010; 80053; 82553; 84484; 85025; 85379; 85610; 85730; 93005; 96360; 96361; J7050

== ENCOUNTER 2016-11-27 06:04 | Emergency (ER) | payer MEDICARE ==
[2016-11-27] MEDS ORDERED: Acetaminophen/Codeine 30-300mg Tablet ONE (06:22)
--- NOTE | 2016-11-27 08:02 | RAD ---
THREE VIEWS OF THE RIGHT CHEST WALL: INDICATION: Fall with right-sided chest pain. FINDINGS: There is a minimally displaced anterolateral right 9th rib fracture. No additional displaced fractu re is evident. The visualized right lung is clear. No pneumothorax is evident. IMPRESSION: Minimally displaced anterior lateral right 9th rib fracture. POS: [facility]
== END 2016-11-27 07:30 | disposition home or self-care (01) ==
LOC: MADERS 06:04
DX: S16.1XXA Strain of muscle, fascia and tendon at neck level, initial encounter (principal); S70.01XA Contusion of right hip, initial encounter; S20.211A Contusion of right front wall of thorax, initial encounter; I10 Essential (primary) hypertension; I20.9 Angina pectoris, unspecified; F41.9 Anxiety disorder, unspecified; F17.210 Nicotine dependence, cigarettes, uncomplicated; Z79.899 Other long term (current) drug therapy; Z79.891 Long term (current) use of opiate analgesic; W06.XXXA Fall from bed, initial encounter

== ENCOUNTER 2016-12-25 07:38 | Outpatient (CLI) | payer MEDICARE ==
[2016-12-25 08:36] LABS: Anion Gap 13 mmol/L (10-20); BUN (Urea Nitrogen) 23 mg/dL (9.8-20.1); Calc. Creatinine Clearance 0 mL/min (70-130); Calcium 9.6 mg/dL (7.8-10.44); Carbon Dioxide 22 mmol/L (23-31); Chloride 102 mmol/L (98-107); Estimated GFR-MDRD 46; Glucose 101 mg/dL (83-110); Potassium 4.4 mmol/L (3.5-5.1); Sodium 133 mmol/L (136-145)
[2016-12-25 10:23] LABS: #Basophils 0.1 thou/uL (0.0-0.2); #Eosinphils 0.2 thou/uL (0.0-0.7); #Lymphocytes 1.5 thou/uL (1.20-3.40); #Monocytes 0.4 thou/uL (0.11-0.59); #Neutrophils 4.8 thou/uL (1.40-6.50); %Basophils 0.8 % (0.0-1.0); %Eosinophils 2.6 % (0.0-10.0); %Lymphocytes 21.6 % (21.0-51.0); %Monocytes 5.1 % (0.0-10.0); %Neutrophils 69.9 % (42.0-75.0); Hemoglobin 9.4 g/dL (12.0-16.0); Mean Corpuscular HGB CONC 31.2 g/dL (32.0-36.0); Mean Corpuscular Hemoglobin 25.2 pg (27.0-31.0); Mean Corpuscular Volume 80.8 fl (81.0-99.0); Mean Platelet Volume 6.4 fL (7.4-10.4); Platelet Count 455 thou/uL (130-400); RBC Distribution Width 21.4 % (11.5-14.5); Red Blood Cell (RBC) Count 3.74 mill/uL (4.20-5.40); White Blood Cell (WBC) Count 6.8 thou/uL (4.8-10.8)
[2016-12-25 12:50] LABS: Anisocytosis SLIGHT = 6-15 cells (100X) (0-5/hpf); PLT Morphology Comment Appears Adequate
[2016-12-25 16:38] LABS: Iron 32 ug/dL (50-170); Iron Binding Capacity, Total 396 mcg/dL (265-497)
== END 2016-12-25 07:39 | disposition home or self-care (01) ==
LOC: MADLABBHPM 07:38
PROVIDERS: ATTEND Family Medicine
DX: E87.1 Hypo-osmolality and hyponatremia (principal); D64.9 Anemia, unspecified
CPT/HCPCS: 36415; 80048; 82728; 83540; 83550; 85025

== ENCOUNTER 2017-02-05 09:00 | Outpatient (CLI) | payer MEDICARE ==
[2017-02-05 09:45] LABS: Anion Gap 14 mmol/L (10-20); BUN (Urea Nitrogen) 31 mg/dL (9.8-20.1); Calc. Creatinine Clearance 0 mL/min (70-130); Calcium 9.1 mg/dL (7.8-10.44); Carbon Dioxide 22 mmol/L (23-31); Chloride 106 mmol/L (98-107); Estimated GFR-MDRD 43; Glucose 96 mg/dL (83-110); Potassium 4.5 mmol/L (3.5-5.1); Sodium 137 mmol/L (136-145)
[2017-02-05 09:50] LABS: #Basophils 0.1 thou/uL (0.0-0.2); #Eosinphils 0.2 thou/uL (0.0-0.7); #Lymphocytes 1.6 thou/uL (1.20-3.40); #Monocytes 0.5 thou/uL (0.11-0.59); #Neutrophils 4.6 thou/uL (1.40-6.50); %Eosinophils 3.1 % (0.0-10.0); %Monocytes 7.2 % (0.0-10.0); %Neutrophils 64.7 % (42.0-75.0); Anisocytosis SLIGHT = 6-15 cells (100X) (0-5/hpf); Hemoglobin 9.9 g/dL (12.0-16.0); Hypochromia SLIGHT = 6-15 cells (100X) (0-5/hpf); MDiff Complete? YES; Mean Corpuscular HGB CONC 30.3 g/dL (32.0-36.0); Mean Corpuscular Hemoglobin 25.1 pg (27.0-31.0); Mean Corpuscular Volume 82.8 fl (81.0-99.0); Mean Platelet Volume 6.9 fL (7.4-10.4); Platelet Count 402 thou/uL (130-400); RBC Distribution Width 20.3 % (11.5-14.5); Red Blood Cell (RBC) Count 3.93 mill/uL (4.20-5.40); White Blood Cell (WBC) Count 7.1 thou/uL (4.8-10.8)
== END 2017-02-05 09:01 | disposition home or self-care (01) ==
LOC: MADLABBHPM 09:00
PROVIDERS: ATTEND Family Medicine
DX: N18.3 Chronic kidney disease, stage 3 (moderate) (principal)
CPT/HCPCS: 36415; 80048; 85025

== ENCOUNTER 2017-04-18 04:21 | Emergency (ER) | payer MEDICARE ==
[2017-04-18 04:50] LABS: #Basophils 0.1 thou/uL (0.0-0.2); #Eosinphils 0.1 thou/uL (0.0-0.7); #Lymphocytes 1.2 thou/uL (1.20-3.40); #Monocytes 0.5 thou/uL (0.11-0.59); #Neutrophils 4.5 thou/uL (1.40-6.50); %Basophils 1.1 % (0.0-1.0); %Eosinophils 0.9 % (0.0-10.0); %Monocytes 8.6 % (0.0-10.0); %Neutrophils 70.4 % (42.0-75.0); Hemoglobin 9.2 g/dL (12.0-16.0); Mean Corpuscular HGB CONC 33.6 g/dL (32.0-36.0); Mean Corpuscular Hemoglobin 26.1 pg (27.0-31.0); Mean Corpuscular Volume 77.8 fl (81.0-99.0); Mean Platelet Volume 6.5 fL (7.4-10.4); Platelet Count 452 thou/uL (130-400); RBC Distribution Width 15.5 % (11.5-14.5); Red Blood Cell (RBC) Count 3.53 mill/uL (4.20-5.40); White Blood Cell (WBC) Count 6.3 thou/uL (4.8-10.8)
[2017-04-18 05:02] LABS: Anion Gap 20 mmol/L (10-20); BUN (Urea Nitrogen) 22 mg/dL (9.8-20.1); Calc. Creatinine Clearance 0 mL/min (70-130); Calcium 8.6 mg/dL (7.8-10.44); Carbon Dioxide 16 mmol/L (23-31); Chloride 93 mmol/L (98-107); Estimated GFR-MDRD 44; Glucose 110 mg/dL (83-110); Potassium 4.1 mmol/L (3.5-5.1); Sodium 125 mmol/L (136-145)
[2017-04-18] MEDS ORDERED: Morphine 4 MG/ML Carpuject ONE (05:04)
[2017-04-18 05:06] LABS: CKMB 4.4 ng/mL (0-6.6); Troponin I Less than 0.010 ng/mL (< 0.028)
--- NOTE | 2017-04-18 08:18 | RAD ---
PORTABLE UPRIGHT CHEST: HISTORY: A 81-year-old female with a history of chest pain. COMPARISON: 09/29/16. FINDINGS: Monitor leads overlie the chest. Heart size is within normal limits. Atherosclerosis of the aorta with ectasia. No confluent pneumonia, overt edema, or pleural effusion. IMPRESSION: No significant active intrathoracic disease. Stable from prior study. POS: [facility]
== END 2017-04-18 05:56 | disposition short-term general hospital (02) ==
LOC: MADERS 04:21
DX: R07.9 Chest pain, unspecified (principal); E87.1 Hypo-osmolality and hyponatremia; I10 Essential (primary) hypertension; F41.9 Anxiety disorder, unspecified; F17.210 Nicotine dependence, cigarettes, uncomplicated
CPT/HCPCS: 71010; 80048; 82553; 83880; 84484; 85025; 93005; 96374; J2270

== ENCOUNTER 2017-12-21 12:36 | Outpatient (CLI) | payer MEDICARE ==
[2017-12-21 13:42] LABS: #Basophils 0.1 thou/uL (0.0-0.2); #Lymphocytes 0.3 thou/uL (1.20-3.40); #Monocytes 0.3 thou/uL (0.11-0.59); %Basophils 1.2 % (0.0-1.0); %Eosinophils 0.1 % (0.0-10.0); %Lymphocytes 3.8 % (21.0-51.0); %Monocytes 3.6 % (0.0-10.0); %Neutrophils 91.2 % (42.0-75.0); Anisocytosis MARKED = >30 cells (100X) (0-5/hpf); Hemoglobin 9.3 g/dL (12.0-16.0); Hypochromia MODERATE=16-30 cells (100X) (0-5/hpf); MDiff Complete? YES; Mean Corpuscular HGB CONC 31.4 g/dL (32.0-36.0); Mean Corpuscular Hemoglobin 23.2 pg (27.0-31.0); Mean Corpuscular Volume 73.7 fL (78.0-98.0); Mean Platelet Volume 5.3 fL (7.4-10.4); Microcytosis SLIGHT = 6-15 cells (100X) (0-5/hpf); PLT Morphology Comment Appears Adequate; Platelet Count 568 thou/uL (130-400); RBC Distribution Width 22.1 % (11.5-14.5); Red Blood Cell (RBC) Count 4.03 mill/uL (4.20-5.40); White Blood Cell (WBC) Count 8.7 thou/uL (4.8-10.8)
== END 2017-12-21 12:37 | disposition home or self-care (01) ==
LOC: MADLABBHPM 12:36
PROVIDERS: ATTEND Family Medicine
DX: D64.9 Anemia, unspecified (principal)
CPT/HCPCS: 85025

== ENCOUNTER 2018-01-24 12:26 | Outpatient (CLI) | payer MEDICARE ==
[2018-01-24 13:36] LABS: #Basophils 0.1 thou/uL (0.0-0.2); #Eosinphils 0.2 thou/uL (0.0-0.7); #Lymphocytes 1.6 thou/uL (1.20-3.40); #Monocytes 0.4 thou/uL (0.11-0.59); #Neutrophils 5.6 thou/uL (1.40-6.50); %Basophils 0.7 % (0.0-1.0); %Eosinophils 2.2 % (0.0-10.0); %Lymphocytes 20.6 % (21.0-51.0); %Monocytes 5.5 % (0.0-10.0); Mean Corpuscular HGB CONC 30.1 g/dL (32.0-36.0); Mean Corpuscular Hemoglobin 25.6 pg (27.0-31.0); Mean Corpuscular Volume 84.9 fL (78.0-98.0); Mean Platelet Volume 5.5 fL (7.4-10.4); Platelet Count 412 thou/uL (130-400); RBC Distribution Width 26.6 % (11.5-14.5); Red Blood Cell (RBC) Count 4.69 mill/uL (4.20-5.40); White Blood Cell (WBC) Count 7.9 thou/uL (4.8-10.8)
[2018-01-24 13:46] LABS: Anion Gap 18 mmol/L (10-20); BUN (Urea Nitrogen) 18 mg/dL (9.8-20.1); Calc. Creatinine Clearance 0 mL/min (70-130); Calcium 8.9 mg/dL (7.8-10.44); Carbon Dioxide 21 mmol/L (23-31); Chloride 108 mmol/L (98-107); Estimated GFR-MDRD 61; Glucose 74 mg/dL (83-110); Sodium 143 mmol/L (136-145)
[2018-01-24 13:48] LABS: Anisocytosis SLIGHT = 6-15 cells (100X) (0-5/hpf)
[2018-01-24 13:51] LABS: Poikilocytosis SLIGHT = 6-15 cells (100X) (0-5/hpf)
[2018-01-24 13:52] LABS: PLT Morphology Comment Appears Increased
== END 2018-01-24 12:27 | disposition home or self-care (01) ==
LOC: MADLAB 12:26
PROVIDERS: ATTEND Family Medicine
DX: I25.10 Atherosclerotic heart disease of native coronary artery without angina pectoris (principal)
CPT/HCPCS: 80048; 85025

== ENCOUNTER 2018-02-21 13:38 | Outpatient (CLI) | payer MEDICARE ==
[2018-02-21 14:25] LABS: ALT (SGPT) 8 U/L (8-55); AST (SGOT) 13 U/L (5-34); Albumin 3.9 g/dL (3.4-4.8); Alkaline Phosphatase 107 U/L (40-150); Anion Gap 17 mmol/L (10-20); BUN (Urea Nitrogen) 20 mg/dL (9.8-20.1); Bilirubin, Direct 0.1 mg/dL (0.1-0.3); Bilirubin, Total 0.3 mg/dL (0.2-1.2); Calc. Creatinine Clearance 0 mL/min (70-130); Calcium 9.3 mg/dL (7.8-10.44); Carbon Dioxide 24 mmol/L (23-31); Cardiac Risk 3.6 (Less than 4.5); Chloride 103 mmol/L (98-107); Cholesterol 168 mg/dl (< 200 Desired); Estimated GFR-MDRD 53; Glucose 78 mg/dL (83-110); HDL Cholesterol 47 mg/dL (>60 Neg Risk); LDL Cholesterol, Calculated 94 mg/dL; Potassium 4.3 mmol/L (3.5-5.1); Protein, Total 6.9 g/dL (6.0-8.3); Sodium 140 mmol/L (136-145); Triglycerides 135 mg/dL (Less than 150)
[2018-02-21 15:15] LABS: #Basophils 0.1 thou/uL (0.0-0.2); #Eosinphils 0.2 thou/uL (0.0-0.7); #Lymphocytes 1.5 thou/uL (1.20-3.40); #Monocytes 0.4 thou/uL (0.11-0.59); #Neutrophils 4.6 thou/uL (1.40-6.50); %Basophils 1.3 % (0.0-1.0); %Eosinophils 2.5 % (0.0-10.0); %Lymphocytes 21.7 % (21.0-51.0); %Neutrophils 68.6 % (42.0-75.0); Anisocytosis SLIGHT = 6-15 cells (100X) (0-5/hpf); Hemoglobin 12.8 g/dL (12.0-16.0); MDiff Complete? YES; Mean Corpuscular HGB CONC 30.6 g/dL (32.0-36.0); Mean Corpuscular Hemoglobin 27.2 pg (27.0-31.0); Mean Platelet Volume 6.6 fL (7.4-10.4); Platelet Count 412 thou/uL (130-400); RBC Distribution Width 21.8 % (11.5-14.5); White Blood Cell (WBC) Count 6.7 thou/uL (4.8-10.8)
== END 2018-02-21 13:39 | disposition home or self-care (01) ==
LOC: MADLAB 13:38
PROVIDERS: ATTEND Family Medicine
DX: I12.9 Hypertensive chronic kidney disease with stage 1 through stage 4 chronic kidney disease, or unspecified chronic kidney disease (principal); N18.9 Chronic kidney disease, unspecified; I25.10 Atherosclerotic heart disease of native coronary artery without angina pectoris
CPT/HCPCS: 80048; 80061; 80076; 82306; 84443; 85025

== ENCOUNTER 2018-07-14 07:19 | Outpatient (CLI) | payer MEDICARE ==
--- NOTE | 2018-07-14 08:37 | CT ---
CT BRAIN WITHOUT CONTRAST: Date: 07/14/18 HISTORY: Fall. Pain. Trauma. COMPARISON: CT brain dated 08/09/17. FINDINGS: No acute hemorrhage. No infarct. No midline shift or mass effect. There is a right forehead soft tiss ue contusion. Underlying calvarium is intact. Paranasal sinuses and mastoids are clear. Moderate atherosclerotic plaque. Moderate atrophy and chronic microvascular ischemic changes. IMPRESSION: Chronic findings. No acute post-traumatic intracranial sequelae. POS: [facility]
--- NOTE | 2018-07-14 08:40 | CT ---
CT CERVICAL SPINE WITHOUT CONTRAST: Date: 07/14/18 HISTORY: Patient fell on Wednesday. Pain. COMPARISON: None. FINDINGS: No craniocervical dissociation. Appropriate alignment of the lateral masses of C1 and C2. Intact odon toid process. Appropriate alignment of the facets. Straightening of normal cervical lordosis may be due to patient position, muscle spasm, or cervical c ollar. 2.5 mm anterolisthesis of C2 upon C3. 2.5 mm anterolisthesis of C3 upon C4. Soft tissue neck structures are unremarkable. Atherosclerosis of both carotid arteries. Upper mediast inum is unremarkable. Presumed chronic changes in the lung apices. Varying degrees of central canal stenosis and foraminal narrowing on the basis of degenerative change . Cervical spine vertebral body height is maintained. There is no fracture. IMPRESSION: No cervical spine fracture. POS: [facility]
== END 2018-07-14 07:20 | disposition home or self-care (01) ==
LOC: MADCT 07:19
PROVIDERS: ATTEND Family Medicine
DX: S00.83XA Contusion of other part of head, initial encounter (principal); W19.XXXA Unspecified fall, initial encounter
CPT/HCPCS: 70450; 72125

== ENCOUNTER 2019-03-10 06:02 | Emergency (ER) | payer MEDICARE ==
[2019-03-10 06:26] LABS: Bilirubin Negative (Negative); Blood, Urine Moderate (Negative); Clarity Clear (Clear); Glucose, Urine (Dipstick) Negative (Negative); Leukocyte Negative (Negative); Nitrite Negative (Negative); Protein, Urine (Dipstick) 100 mg/dL (Neg-Trace); Urobilinogen 0.2 mg/dL (Less than 2)
[2019-03-10 06:28] LABS: Squamous Epithelial 0-3 HPF (0-3); WBC/HPF None Seen HPF (0-3)
[2019-03-10 06:29] LABS: Bacteria/HPF None Seen HPF (None Seen)
[2019-03-10] MEDS ORDERED: Acetaminophen/Codeine 30-300mg Tablet ONE ×2 (06:46→08:11)
[2019-03-10 07:01] LABS: #Basophils 0.1 thou/uL (0.0-0.2); #Eosinphils 0.1 thou/uL (0.0-0.7); #Lymphocytes 1.4 thou/uL (1.20-3.40); #Monocytes 0.4 thou/uL (0.11-0.59); #Neutrophils 5.6 thou/uL (1.40-6.50); %Basophils 0.9 % (0.0-1.0); %Eosinophils 1.8 % (0.0-10.0); %Lymphocytes 18.2 % (21.0-51.0); %Monocytes 4.7 % (0.0-10.0); %Neutrophils 74.5 % (42.0-75.0); Mean Corpuscular HGB CONC 31.6 g/dL (32.0-36.0); Mean Corpuscular Hemoglobin 26.3 pg (27.0-31.0); Mean Corpuscular Volume 83.3 fL (78.0-98.0); Mean Platelet Volume 5.8 fL (7.4-10.4); Platelet Count 464 thou/uL (130-400); RBC Distribution Width 16.9 % (11.5-14.5); Red Blood Cell (RBC) Count 3.81 mill/uL (4.20-5.40); White Blood Cell (WBC) Count 7.6 thou/uL (4.8-10.8)
[2019-03-10 07:16] LABS: ALT (SGPT) 12 U/L (8-55); AST (SGOT) 21 U/L (5-34); Albumin 3.9 g/dL (3.4-4.8); Alkaline Phosphatase 73 U/L (40-110); Anion Gap 15 mmol/L (10-20); BUN (Urea Nitrogen) 16 mg/dL (9.8-20.1); Bilirubin, Total 0.3 mg/dL (0.2-1.2); Calc. Creatinine Clearance 0 mL/min (70-130); Calcium 9.4 mg/dL (7.8-10.44); Carbon Dioxide 21 mmol/L (23-31); Chloride 103 mmol/L (98-107); Estimated GFR-MDRD 47; Globulin 3.4 g/dL (2.4-3.5); Glucose 102 mg/dL (83-110); Potassium 3.7 mmol/L (3.5-5.1); Protein, Total 7.3 g/dL (6.0-8.3); Sodium 135 mmol/L (136-145)
--- NOTE | 2019-03-10 08:35 | CT ---
CT Stone Protocol 03/10/2019 6:44 AM HISTORY: Left flank and back pain. Hematuria. COMPARISON: 02/14/2019 Technique: Multiple contiguous axial CT images are obtained through the abdomen and pelvis without IV contrast. Coronal reformats are provided. FINDINGS: This examination is limited for the evaluation of solid organs and vascular structures due to the lac k of intravenous contrast. Lower Chest: Mild dependent bibasilar atelectasis. Abdomen: Liver: Few tiny calcified granulomata are seen. Gallbladder: Grossly normal nonenhanced CT appearance. Pancreas: Grossly normal nonenhanced CT appearance Spleen: Calcified granulomata are seen. Adrenals: Grossly normal nonenhanced CT appearance. Kidneys: Stable exophytic hypodense cystic lesion right kidney likely due to a renal cyst. No hydrone phrosis is present. 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 This was also present on prior exam.. Pelvis: Urinary bladder: Mostly obscured due to prominent streak artifact from bilateral total hip prostheses . Reproductive Organs: Unable to be evaluated due to streak artifact and limited evaluation of the lowe r pelvis. Lymph Nodes: No enlarged lymph nodes. Bowel: Multiple colonic diverticula are seen throughout the colon. Appendix: Not definitely visualized, but there are no secondary signs to suggest appendicitis. Peritoneum: No free fluid, free air, or fluid collection. Retroperitoneum: within normal limits. 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 The aneurysm sac in greatest dimensions measures 4.9 cm x 4.8 cm with overall similar measurements on prior exam. Prior examination was performed with contrast which demonstrated evidence of an endoleak. Abdominal Wall: Surgical clips are seen in each inguinal region. Bones: There are compression fractures involving the lower thoracic as well as lumbar spine stable wh en compared to study on 01/16/2019. Degenerative changes are again seen in the spine. IMPRESSION: 1. No renal or ureteral calculi are seen bilaterally. 2. 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 The aneurysm sac measures 4.9 cm in greatest dim ensions. Aneurysm sac dimensions have not significantly changed when compared to prior study. As noted above there was evidence of a endoleak on the prior exam. 3. Stable compression fracture involving a lower thoracic vertebral body as well as upper lumbar vert ebral body. 4. Colonic diverticulosis. 5. Stable hypodense cystic lesion right kidney likely related to a renal cyst.
== END 2019-03-10 08:57 | disposition home or self-care (01) ==
LOC: MADERS 06:02
DX: M54.5 Low back pain (principal); I10 Essential (primary) hypertension; F41.9 Anxiety disorder, unspecified; F17.210 Nicotine dependence, cigarettes, uncomplicated; Z95.5 Presence of coronary angioplasty implant and graft
CPT/HCPCS: 36415; 74176; 80053; 81003; 81015; 85025

== ENCOUNTER 2019-04-08 10:18 | Emergency (ER) | payer MEDICARE ==
[~2019-04-08 10:18] MED LIST changes: +Iopamidol 370 76% 150 ML VIAL FS ONE; -Sodium Chloride 0.9% 1,000 ML BAG ONE
[2019-04-08 10:46] LABS: PTT 29.2 SEC (22.9-36.1); Prothrombin Time 12.7 SEC (12.0-14.7)
[2019-04-08 10:58] LABS: ALT (SGPT) 17 U/L (8-55); AST (SGOT) 22 U/L (5-34); Albumin 3.8 g/dL (3.4-4.8); Alkaline Phosphatase 72 U/L (40-110); Anion Gap 16 mmol/L (10-20); BUN (Urea Nitrogen) 22 mg/dL (9.8-20.1); Bilirubin, Total 0.3 mg/dL (0.2-1.2); CK (CPK) 121 U/L (29-168); Calc. Creatinine Clearance 0 mL/min (70-130); Carbon Dioxide 18 mmol/L (23-31); Chloride 107 mmol/L (98-107); Estimated GFR-MDRD 44; Globulin 3.3 g/dL (2.4-3.5); Glucose 109 mg/dL (83-110); Magnesium 2.1 mg/dL (1.6-2.6); Potassium 3.8 mmol/L (3.5-5.1); Protein, Total 7.1 g/dL (6.0-8.3); Sodium 137 mmol/L (136-145)
[2019-04-08 11:10] LABS: #Basophils 0.2 thou/uL (0.0-0.2); #Eosinphils 0.1 thou/uL (0.0-0.7); #Lymphocytes 0.7 thou/uL (1.20-3.40); #Monocytes 0.8 thou/uL (0.11-0.59); #Neutrophils 10.7 thou/uL (1.40-6.50); %Basophils 1.4 % (0.0-1.0); %Eosinophils 0.6 % (0.0-10.0); %Lymphocytes 5.9 % (21.0-51.0); %Monocytes 6.6 % (0.0-10.0); %Neutrophils 85.5 % (42.0-75.0); Anisocytosis SLIGHT = 6-15 cells (100X) (0-5/hpf); Hemoglobin 9.7 g/dL (12.0-16.0); Hypochromia SLIGHT = 6-15 cells (100X) (0-5/hpf); MDiff Complete? YES; Mean Corpuscular HGB CONC 29.5 g/dL (32.0-36.0); Mean Corpuscular Hemoglobin 24.8 pg (27.0-31.0); Mean Corpuscular Volume 84.2 fL (78.0-98.0); Mean Platelet Volume 6.4 fL (7.4-10.4); Platelet Count 400 thou/uL (130-400); Platelet Morphology Comment Appears Adequate; RBC Distribution Width 15.8 % (11.5-14.5); White Blood Cell (WBC) Count 12.5 thou/uL (4.8-10.8)
--- NOTE | 2019-04-08 11:30 | CT ---
CT Brain WO Con: 04/08/2019 10:36 AM CLINICAL HISTORY: Fall. COMPARISON: None. FINDINGS: Hemorrhage: None. Ventricular system: Normal in size and morphology for the patient's age. Cerebral parenchyma: Microvascular ischemic disease Midline shift: None. Mass: No mass effect. Calvarium: Normal. Visualized Paranasal sinuses: Clear. IMPRESSION: No acute intracranial abnormalities. Moderate chronic microvascular ischemic disease.
--- NOTE | 2019-04-08 11:38 | CT ---
CT Cervical Spine WO Con History: Fall. Neck pain. Comparison: CT cervical spine July 14, 2018 Findings: The odontoid process is intact. The occipital condyles are intact. No acute fracture or mal alignment. No acute transverse process fracture. Moderate atherosclerotic plaque proximal internal carotid arter ies bilaterally. Dictated: The right lung apex. Thyroid is unremarkable. No prevertebral hematoma. No acute posttraumatic facet joint widening. Motion artifact through the lateral second ribs bilaterally. Impression: No acute fracture or malalignment.
--- NOTE | 2019-04-08 11:46 | CT ---
CT Aortic Dissection Protocol History: Recent aortic repair. Syncope. Comparison: CT angiogram February 14, 2019 Findings: There is a cavitary pleural bleb the right upper lobe incompletely evaluated as the lung ap ices are not fully interrogated. Lungs are hypoinflated. Mild scattered atelectatic changes. The exam was performed during end expiration. Ascending aorta is intact as well as the descending thoracic aorta. There is a left ventricular apex small aneurysm. Similar appearance of the aortic biiliac graft and type to a endoleak. The aortic aneurysm size is no t increased. The spleen pancreas and liver gallbladder are all unremarkable. Hypodensities of the kidneys are lesly lar. High-grade narrowing of the celiac trunk with poststenotic dilatation due to calcific and soft plaque . Chronic appearing superior endplate deformities thoracic spine. Healing sternal fracture. No acute displaced rib fracture. Severe degenerative changes of the left shoulder. Impression: 1. Similar appearance of the infrarenal abdominal aortic aneurysm with aortobiiliac graft. II a endol eak is similar. 2. Incomplete evaluation of the somewhat thick-walled right apical pleural bleb/bulla. Nonemergent fo llow-up CT of the chest in 3 months is recommended. 3. Healing sternal fracture. 4. 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
--- NOTE | 2019-04-08 11:50 | RAD ---
XR Hip Lt 2-3 View: 04/08/2019 10:35 AM CLINICAL INDICATION: Fall COMPARISON: 12/10/2017 FINDINGS: Fracture:There is osseous irregularity centered at the left pubic body with overriding of the medial aspect of the superior and inferior pubic rami. Arthropathy:Scattered osseous degenerative change. Bilateral hip prostheses Incidental findings:Vascular clips and vascular stent. IMPRESSION: Comminuted fracture centered at the left pubic body.
--- NOTE | 2019-04-08 12:07 | RAD ---
XR Femur Lt 2 View STANDARD: 04/08/2019 10:36 AM CLINICAL INDICATION: Fall COMPARISON: None. FINDINGS: Fracture:There is a comminuted fracture centered at the left pubic body. Arthropathy:None of significance. Incidental findings:Vascular disease and metallic clips. IMPRESSION: 1. Comminuted fracture centered at the left pubic body.
[2019-04-08 12:23] LABS: Bilirubin Negative (Negative); Blood, Urine Moderate (Negative); Glucose, Urine (Dipstick) Negative (Negative); Leukocyte Negative (Negative); Nitrite Negative (Negative); Protein, Urine (Dipstick) 100 mg/dL (Neg-Trace); Urobilinogen 0.2 mg/dL (Less than 2)
[2019-04-08 12:24] LABS: Clarity Hazy (Clear)
[2019-04-08 12:30] LABS: Bacteria/HPF Rare-Few HPF (None Seen); Squamous Epithelial None Seen HPF (0-3); WBC/HPF 0-3 HPF (0-3)
[2019-04-08] MEDS ORDERED: Nitroglycerin 2% Ointment 1 INCH/1 GM Packet ONE (12:30)
== END 2019-04-08 12:54 | disposition short-term general hospital (02) ==
LOC: MADERS 10:18
DX: S32.502A Unspecified fracture of left pubis, initial encounter for closed fracture (principal); S00.83XA Contusion of other part of head, initial encounter; E87.70 Fluid overload, unspecified; I11.0 Hypertensive heart disease with heart failure; I50.9 Heart failure, unspecified; R55 Syncope and collapse; K21.9 Gastro-esophageal reflux disease without esophagitis; J44.9 Chronic obstructive pulmonary disease, unspecified; E78.00 Pure hypercholesterolemia, unspecified; F17.210 Nicotine dependence, cigarettes, uncomplicated; I25.10 Atherosclerotic heart disease of native coronary artery without angina pectoris; F41.9 Anxiety disorder, unspecified; Z79.899 Other long term (current) drug therapy; W19.XXXA Unspecified fall, initial encounter
CPT/HCPCS: 51701; 70450; 71275; 72125; 72191; 74175; 80053; 81003; 81015; 82550; 83605; 83735; 83880; 84443; 84484; 85025; 85610; 85730; 93005; A4353

== ENCOUNTER 2019-04-21 15:25 | Emergency (ER) | payer MEDICARE ==
[2019-04-21] MEDS ORDERED: Ibuprofen 800 MG TAB ONE ×2 (16:00→16:01)
[2019-04-21] MEDS ORDERED: Sodium Chloride 0.9% 1,000 ML ONE ×3 (16:01→17:58)
[2019-04-21 16:26] LABS: #Lymphocytes 0.3 thou/uL (1.20-3.40); #Monocytes 0.6 thou/uL (0.11-0.59); %Basophils 0.4 % (0.0-1.0); %Eosinophils 0.1 % (0.0-10.0); %Lymphocytes 2.6 % (21.0-51.0); %Monocytes 6.1 % (0.0-10.0); %Neutrophils 90.9 % (42.0-75.0); Hemoglobin 6.7 g/dL (12.0-16.0); Mean Corpuscular HGB CONC 30.3 g/dL (32.0-36.0); Mean Corpuscular Hemoglobin 25.2 pg (27.0-31.0); Mean Platelet Volume 6.3 fL (7.4-10.4); Platelet Count 338 thou/uL (130-400); RBC Distribution Width 17.3 % (11.5-14.5); Red Blood Cell (RBC) Count 2.65 mill/uL (4.20-5.40); White Blood Cell (WBC) Count 9.9 thou/uL (4.8-10.8)
--- NOTE | 2019-04-21 16:30 | RAD ---
Exam: Chest one view HISTORY:Fever Comparison: 02/14/2019 FINDINGS: Lungs: Diffuse interstitial prominence bilaterally Cardiac silhouette:Enlarged cardiac silhouette. Implantable loop recorder overlies left lower chest. There is mild prominence of the aortic silhouette, with vascular calcification Pulmonary vessels: Bilateral vascular congestion Pleural Spaces: Clear Pneumothorax: None Osseous abnormalities: None of acuity. IMPRESSION: Diffuse interstitial prominence which may relate to interstitial edema or pneumonitis. Re commend clinical correlation. Imaging follow-up may be obtained for continued assessment. CHF.
[2019-04-21] MEDS ORDERED: Vancomycin HCl 500 MG VIAL ONE (16:36)
[2019-04-21] MEDS ORDERED: Sodium Chloride 0.9% 100 ML ONE (16:36)
[2019-04-21] MEDS ORDERED: Piperacillin/Tazobactam 4.5 GM VIAL ONE (16:36)
[2019-04-21 16:41] LABS: ALT (SGPT) 15 U/L (8-55); AST (SGOT) 24 U/L (5-34); Albumin 2.7 g/dL (3.4-4.8); Alkaline Phosphatase 54 U/L (40-110); Anion Gap 13 mmol/L (10-20); BUN (Urea Nitrogen) 47 mg/dL (9.8-20.1); Bilirubin, Total 0.3 mg/dL (0.2-1.2); Calc. Creatinine Clearance 0 mL/min (70-130); Calcium 7.7 mg/dL (7.8-10.44); Carbon Dioxide 18 mmol/L (23-31); Chloride 103 mmol/L (98-107); Estimated GFR-MDRD 16; Glucose 105 mg/dL (83-110); Potassium 3.2 mmol/L (3.5-5.1); Protein, Total 5.7 g/dL (6.0-8.3); Sodium 131 mmol/L (136-145)
== END 2019-04-21 18:07 | disposition short-term general hospital (02) ==
LOC: MADERS 15:25
DX: A41.9 Sepsis, unspecified organism (principal); R65.20 Severe sepsis without septic shock; J18.9 Pneumonia, unspecified organism; D50.0 Iron deficiency anemia secondary to blood loss (chronic); D63.8 Anemia in other chronic diseases classified elsewhere; S32.9XXA Fracture of unspecified parts of lumbosacral spine and pelvis, initial encounter for closed fracture; J44.9 Chronic obstructive pulmonary disease, unspecified; E78.00 Pure hypercholesterolemia, unspecified; K21.9 Gastro-esophageal reflux disease without esophagitis; I11.0 Hypertensive heart disease with heart failure; I50.9 Heart failure, unspecified; F41.9 Anxiety disorder, unspecified; F17.210 Nicotine dependence, cigarettes, uncomplicated; Z79.01 Long term (current) use of anticoagulants; Z79.899 Other long term (current) drug therapy; Z95.5 Presence of coronary angioplasty implant and graft; X58.XXXA Exposure to other specified factors, initial encounter
CPT/HCPCS: 36415; 71045; 80053; 83605; 85025; 86850; 86900; 86901; 87040; 87077; 87149; 87186; 87804; 96361; 96365; 96367; 99292; J2543; J3370; J3490; J7050; J7070